=== PATIENT | female | born 1980 ===

== ENCOUNTER 2017-10-12 15:19 | Emergency (ER) | payer OTHER, SELFPAY ==
[2017-10-12 15:19] VITALS: BMI 23.1
--- NOTE | 2017-10-12 15:52 | ED PDOC ---
Upper Extremity Pain/Injury Time Seen by Provider: 10/12/17 15:34 Chief Complaint (Nursing): Upper Extremity Problem/Injury Chief Complaint (Provider): Left shoulder pain History Per: Patient History/Exam Limitations: no limitations Onset/Duration Of Symptoms: Days (6) Current Symptoms Are (Timing): Still Present Additional Complaint(s): 37 year old female presents to the emergency department with a complaint of a left shoulder pain x6 days. Associated with numbness to her L fingers. 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 Denies fever, decrease in range of motion, trauma, or any other joint point. Past Medical History Reviewed: Historical Data, Nursing Documentation, Vital Signs Vital Signs: Last Vital Signs Temp 98.2 F 10/12/17 15:23 Pulse 71 10/12/17 15:23 Resp 16 10/12/17 15:23 BP 118/78 10/12/17 15:23 Pulse Ox 98 10/12/17 15:23 - Medical History PMH: No Chronic Diseases - Surgical History Surgical History: Appendectomy - Family History Family History: States: Unknown Family Hx - Social History Current smoker - smoking cessation education provided: No Alcohol: None Drugs: Denies - Home Medications Home Medications: Ambulatory Orders Medication Instructions Recorded Naproxen [Naprosyn] 500 mg PO BID PRN #15 tablet 02/03/16 traMADol [Ultram] 50 mg PO Q8H PRN #10 tab 02/03/16 Meloxicam [Mobic] 15 mg PO DAILY PRN #30 tab 10/12/17 - Allergies Allergies/Adverse Reactions: Allergies Allergy/AdvReac Type Severity Reaction Status Date / Time No Known Allergies Allergy Verified 10/12/17 15:22 Review of Systems ROS Statement: Except As Marked, All Systems Reviewed And Found Negative (As per HPI, otherwise negative) Constitutional: Negative for: Fever, Other (Trauma, decrease in range of motion , or any other joint pain. ) Musculoskeletal: Positive for: Shoulder Pain (Left) Neurological: Positive for: Numbness Physical Exam - Reviewed Nursing Documentation Reviewed: Yes Vital Signs Reviewed: Yes - Physical Exam Comments: GENERAL APPEARANCE: Patient is awake, alert, oriented x 3, in no acute distress. SKIN: Warm, dry; (-) cyanosis. LEFT UPPER EXTREMITY: (+) Mild point tenderness to the posterior aspect of the L shoulder, (+) FROM, (-) swelling, (-) ecchymosis, (-) deformity, (-) distal neurovascular deficit. Elbow, hand and digits: (-) tenderness. NEURO AND PSYCH: Mental status as above. - ECG O2 Sat by Pulse Oximetry: 98 (RA) Pulse Ox Interpretation: Normal Medical Decision Making Medical Decision Making: Time: 1537 Initial impression: Left shoulder pain Initial plan: --Left shoulder x-ray --Reevaluation XR left shoulder: no fracture, no dislocation, as read by GISELLA Patient advised that official radiology read of XR is still pending and will call the patient if there is any discrepancy within 24 hours. X-ray results were discussed with the patient in great detail. Advised to rest, ice and use sling as advised. Shoulder sling applied. Diagnosis likely muscle strain/joint sprain discussed with the patient. Advised to follow up with the clinic in 1-2 days without fail. Advised to take medication as prescribed. Return to the emergency room at any time for any new or worsening symptoms. Patient states she fully agrees with and understands discharge instructions. States that she agrees with the plan and disposition. Verbalized and repeated discharge instructions and plan. I have given the patient opportunity to ask any additional questions. Scribe Attestation: Documented by Anahy Askew, acting as a scribe for Angeles Burrows PA-C. Provider Scribe Attestation: All medical record entries made by the Scribe were at my direction and personally dictated by me. I have reviewed the chart and agree that the record accurately reflects my personal performance of the history, physical exam, medical decision making, and the department course for this patient. I have also personally directed, reviewed, and agree with the discharge instructions and disposition. Disposition - Clinical Impression Clinical Impression: Left shoulder strain - Patient ED Disposition Is Patient to be Admitted: No Counseled Patient/Family Regarding: Studies Performed, Diagnosis, Need For Followup, Rx Given - Disposition Referrals: [facility] [Outside] Disposition: Routine/Home Disposition Time: 17:00 Condition: STABLE Additional Instructions: Thank you for letting us take care of you today. You were treated for L shoulder strain. The emergency medical care you received today was directed at your acute symptoms. Rest, ice and use sling for comfort. If you were prescribed any medication, please fill it and take as directed. It may take several days for your symptoms to resolve. Return to the Emergency Department if your symptoms worsen, do not improve, or if you have any other problems. Please call one of the physicians/clinics you have been referred to that are listed on the Patient Visit Information form that is included in your discharge packet. Bring any paperwork you were given at discharge with you along with any medications you are taking to your follow up visit. Our treatment cannot replace ongoing medical care by a primary care provider (PCP) outside of the emergency department. Thank you for allowing the [facility] team to be part of your care today. If you had an X-Ray : A Radiologist will review the ED reading if any change in treatment is needed we will contact you. 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
--- NOTE | 2017-10-12 17:13 | RAD ---
PROCEDURE: Radiographs of the Left Shoulder HISTORY: Pain. No history of recent/ related trauma provided Anatomic area of interest: Greater tuberosity region COMPARISON: No prior. FINDINGS: BONES: Normal. No fracture. JOINTS: Normal. Glenohumeral and acromioclavicular joints preserved. No osteoarthritis. SOFT TISSUES: Normal. OTHER FINDINGS: None. IMPRESSION: Normal radiographs of the left shoulder.
[2017-10-12 17:54] VITALS: BP 112/68; PULSE 81; RESP 18; TEMP 98.1; O2SAT 99
== END 2017-10-12 17:54 | disposition home or self-care (01) ==
LOC: H.ER 15:19
DX: S46.912A Strain of unspecified muscle, fascia and tendon at shoulder and upper arm level, left arm, initial encounter (principal); X50.9XXA Other and unspecified overexertion or strenuous movements or postures, initial encounter; Y92.89 Other specified places as the place of occurrence of the external cause

== ENCOUNTER 2018-02-01 13:15 | Emergency (ER) | payer OTHER, SELFPAY ==
[2018-02-01 13:16] VITALS: BMI 23.1
[2018-02-01 13:30] VITALS: BP 117/74; PULSE 76; RESP 16; TEMP 97.4; O2SAT 98
--- NOTE | 2018-02-01 15:37 | ED PDOC ---
Upper Extremity Pain/Injury Time Seen by Provider: 02/01/18 14:11 Chief Complaint (Nursing): Abnormal Skin Integrity Chief Complaint (Provider): left shoulder pain and rash History Per: Patient History/Exam Limitations: no limitations Onset/Duration Of Symptoms: Days (x2) Current Symptoms Are (Timing): Still Present Additional Complaint(s): Tanvi Mayo is a 37 year old female, with no significant past medical history, who presents to the emergency department complaining of left shoulder pain with recent diagnosis of left labral tear and undergoing physical therapy, last session x3 days ago. She reports increased pain since her last session and also reports noting some red rash to her left shoulder area over the past x2 days. Patient states red areas are fairly tender but denies any fever, chills or other medical complaints. PMD: None provided. Past Medical History Reviewed: Historical Data, Nursing Documentation, Vital Signs Vital Signs: Last Vital Signs Temp 97.4 F L 02/01/18 13:26 Pulse 76 02/01/18 13:26 Resp 16 02/01/18 13:26 BP 117/74 02/01/18 13:26 Pulse Ox 98 02/01/18 13:26 - Medical History Other PMH: left labral tear - Surgical History Surgical History: Appendectomy - Family History Family History: States: Unknown Family Hx - Home Medications Home Medications: Ambulatory Orders Medication Instructions Recorded Naproxen [Naprosyn] 500 mg PO BID PRN #15 tablet 02/03/16 traMADol [Ultram] 50 mg PO Q8H PRN #10 tab 02/03/16 Meloxicam [Mobic] 15 mg PO DAILY PRN #30 tab 10/12/17 Cephalexin [Keflex] 500 mg PO Q8 #21 capsule 02/01/18 Ibuprofen [Motrin Tab] 600 mg PO Q8 #15 tab 02/01/18 - Allergies Allergies/Adverse Reactions: Allergies Allergy/AdvReac Type Severity Reaction Status Date / Time No Known Allergies Allergy Verified 10/12/17 15:22 Review of Systems ROS Statement: Except As Marked, All Systems Reviewed And Found Negative Constitutional: Negative for: Fever, Chills Musculoskeletal: Positive for: Shoulder Pain (left) Skin: Positive for: Rash (red, left shoulder area) Physical Exam - Reviewed Nursing Documentation Reviewed: Yes Vital Signs Reviewed: Yes - Physical Exam Appears: Positive for: No Acute Distress Head Exam: Positive for: ATRAUMATIC, NORMOCEPHALIC Skin: Positive for: Normal Color, Warm, Dry, Rash (x3 separate areas of 2 to 3cm of erythema with mild tenderness, no induration or fluctuance, over the left shoulder and left chest wall area.) Eye Exam: Positive for: Normal appearance Neck: Positive for: Painless ROM Respiratory: Negative for: Respiratory Distress Extremity: Positive for: Normal ROM (full ROM of left shoulder but with pain), Tenderness (mild tenderness over the anterior left shoulder ). Negative for: Deformity, Swelling Neurologic/Psych: Positive for: Alert, Oriented - ECG O2 Sat by Pulse Oximetry: 98 (RA) Pulse Ox Interpretation: Normal Medical Decision Making Medical Decision Making: Time: 14:11 Initial Impression: Left shoulder pain and rash Initial Plan: --Motrin tab 600 mg PO --Shoulder left [RAD] --Reevaluation -Shoulder pain related to labral tear, advised to continue physical therapy. Rash is above but not urticarial in presentation, given tenderness will cover with antibiotics and advised to follow up with PMD in x2 days with prescription Scribe Attestation: Documented by Tonny Escobar, acting as a scribe for Sandra Feng PA-C Provider Scribe Attestation: All medical record entries made by the Scribe were at my direction and personally dictated by me. I have reviewed the chart and agree that the record accurately reflects my personal performance of the history, physical exam, medical decision making, and the department course for this patient. I have also personally directed, reviewed, and agree with the discharge instructions and disposition. Disposition - Clinical Impression Clinical Impression: Left shoulder strain, Cellulitis - Disposition Disposition Time: 16:30 Condition: IMPROVED Prescriptions: Cephalexin [Keflex] 500 mg PO Q8 #21 capsule Ibuprofen [Motrin Tab] 600 mg PO Q8 #15 tab Instructions: Muscle Strain, Cellulitis (Skin Infection), Adult (DC) Forms: [employer] (Icelandic), [employer] (Romanian)
--- NOTE | 2018-02-01 16:43 | RAD ---
Date of service: 02/01/2018 PROCEDURE: Radiographs of the Left Shoulder HISTORY: shoulder pain COMPARISON: No prior. FINDINGS: BONES: Normal. No fracture. JOINTS: Normal. Glenohumeral and acromioclavicular joints preserved. No osteoarthritis. SOFT TISSUES: Normal. OTHER FINDINGS: None. IMPRESSION: Normal radiographs of the left shoulder.
== END 2018-02-01 17:27 | disposition home or self-care (01) ==
LOC: H.ER 13:15
DX: M25.512 Pain in left shoulder (principal); R21 Rash and other nonspecific skin eruption

== ENCOUNTER 2018-04-19 20:25 | Emergency (ER) | payer SELFPAY ==
[2018-04-19 20:25] VITALS: BMI 23.1
[2018-04-19 20:32] VITALS: RESP 16; O2SAT 98
--- NOTE | 2018-04-19 21:03 | ED PDOC ---
HPI: General Adult Time Seen by Provider: 04/19/18 20:59 Chief Complaint (Nursing): Female Genitourinary Chief Complaint (Provider): abdominal pain/back pain History Per: Patient (37 y/o female here with lower abdominal pain x 2 days associated with dysuria now associated with right back pain. Denies any fevers/chills/vomiting. Notes diarrhea/nausea. Has h/o appendectomy.) Past Medical History Reviewed: Historical Data, Nursing Documentation, Vital Signs Vital Signs: Last Vital Signs Temp 98.6 F 04/19/18 20:28 Pulse 82 04/19/18 20:28 Resp 16 04/19/18 20:28 BP 141/69 04/19/18 20:28 Pulse Ox 98 04/19/18 20:28 - Surgical History Surgical History: Appendectomy - Family History Family History: States: Unknown Family Hx - Home Medications Home Medications: Ambulatory Orders Medication Instructions Recorded Naproxen [Naprosyn] 500 mg PO BID PRN #15 tablet 02/03/16 traMADol [Ultram] 50 mg PO Q8H PRN #10 tab 02/03/16 Meloxicam [Mobic] 15 mg PO DAILY PRN #30 tab 10/12/17 Cephalexin [Keflex] 500 mg PO Q8 #21 capsule 02/01/18 Ibuprofen [Motrin Tab] 600 mg PO Q8 #15 tab 02/01/18 Ciprofloxacin HCl [Cipro] 500 mg PO BID #14 tablet 04/19/18 Ibuprofen [Motrin] 600 mg PO Q8 PRN #21 tab 04/19/18 Ondansetron ODT [Zofran ODT] 4 mg PO Q8 PRN #10 odt 04/19/18 Phenazopyridine HCl [Pyridium] 200 mg PO Q12 PRN #5 tablet 04/19/18 oxyCODONE/Acetaminophen [Percocet 1 ea PO Q6 PRN #6 tab 04/19/18 5/325 mg Tab] - Allergies Allergies/Adverse Reactions: Allergies Allergy/AdvReac Type Severity Reaction Status Date / Time No Known Allergies Allergy Verified 04/19/18 20:28 Review of Systems ROS Statement: Except As Marked, All Systems Reviewed And Found Negative Gastrointestinal: Positive for: Nausea, Abdominal Pain Physical Exam - Reviewed Nursing Documentation Reviewed: Yes Vital Signs Reviewed: Yes - Physical Exam Appears: Positive for: Well, Non-toxic, No Acute Distress Head Exam: Positive for: ATRAUMATIC, NORMAL INSPECTION, NORMOCEPHALIC Skin: Positive for: Normal Color, Warm, DRY Eye Exam: Positive for: EOMI, Normal appearance, PERRL ENT: Positive for: Normal ENT Inspection Neck: Positive for: Normal, Painless ROM Cardiovascular/Chest: Positive for: Regular Rate, Rhythm Respiratory: Positive for: CNT, Normal Breath Sounds Gastrointestinal/Abdominal: Positive for: Normal Exam, Soft, Tenderness (suprapubic tenderness) Back: Positive for: R CVA Tenderness Extremity: Positive for: Normal ROM Neurologic/Psych: Positive for: Alert, Oriented - Laboratory Results Result Diagrams: 04/19/18 21:19 04/19/18 21:19 - ECG O2 Sat by Pulse Oximetry: 98 - Progress ED Course And Treament: ns 1 liter wide open toradol 15mg iv x 1 dose rocephin 1 gm iv x 1 dose Disposition - Clinical Impression Clinical Impression: Pyelonephritis - Patient ED Disposition Is Patient to be Admitted: No - Disposition Disposition: Routine/Home Disposition Time: 23:37 Condition: FAIR Prescriptions: Ciprofloxacin HCl [Cipro] 500 mg PO BID #14 tablet Ibuprofen [Motrin] 600 mg PO Q8 PRN #21 tab PRN Reason: Pain, Moderate (4-7) Ondansetron ODT [Zofran ODT] 4 mg PO Q8 PRN #10 odt PRN Reason: Nausea/Vomiting oxyCODONE/Acetaminophen [Percocet 5/325 mg Tab] 1 ea PO Q6 PRN #6 tab PRN Reason: Pain, Severe (8-10) Phenazopyridine HCl [Pyridium] 200 mg PO Q12 PRN #5 tablet PRN Reason: Urinary Discomt Instructions: Kidney Infection (DC) Forms: [facility] ED School/Work Excuse Print Language: ISRAELI
[2018-04-19 21:25] LABS: BASO # 0.1 K/uL (0.0-0.2); BASO % 0.8 % (0.0-2.0); EOS # 0.1 K/uL (0.0-0.7); EOS % 0.6 % (0.0-4.0); HEMOGLOBIN 12.3 g/dL (12.0-16.0); LYMPH # 2.9 K/uL (1.0-4.3); LYMPH % 17.8 % (20.0-40.0); MEAN CELL VOLUME 92.3 fl (81.0-99.0); MEAN CORPUSCULAR HEMOGLOBIN 30.6 pg (27.0-31.0); MEAN CORPUSCULAR HGB CONC 33.1 g/dL (33.0-37.0); MEAN PLATELET VOLUME 7.5 fl (7.2-11.7); MONO % 5.9 % (0.0-10.0); NEUT # 12.1 K/uL (1.8-7.0); NEUT % 74.9 % (50.0-75.0); RBC 4.02 Mil/uL (3.80-5.20); RED CELL DISTRIBUTION WIDTH 12.8 % (11.5-14.5); WHITE BLOOD COUNT 16.2 K/uL (4.8-10.8)
[2018-04-19] MEDS: cefTRIAXone (Rocephin) 1 gm Inj IVPB ONE (21:28)
[2018-04-19] MEDS: Sodium Chloride 0.9% 1,000 ML IV STA (21:29)
[2018-04-19 21:51] LABS: SQUAMOUS EPITHIAL 6 /hpf (0-5); URINE BACTERIA MOD (<OCC); URINE BILIRUBIN NEGATIVE (NEGATIVE); URINE BLOOD SMALL (NEGATIVE); URINE CLARITY CLOUDY (Clear); URINE COLOR YELLOW (YELLOW); URINE GLUCOSE (UA) NEG (NEGATIVE); URINE LEUKOCYTE ESTERASE MOD Leu/uL (Negative); URINE PROTEIN 100 mg/dL (NEGATIVE); URINE UROBILINOGEN 0.2-1.0 mg/dL (0.2-1.0); WBC CLUMPS MOD /hpf
[2018-04-19 22:00] LABS: ALB/GLOB RATIO 1.2 (1.0-2.1); ALBUMIN 3.9 g/dL (3.5-5.0); ALT/SGPT 30 U/L (9-52); AST/SGOT 22 U/L (14-36); BLOOD UREA NITROGEN 14 mg/dl (7-17); CALCIUM 8.9 mg/dL (8.4-10.2); GFR NON-AFRICAN AMERICAN > 60; LIPASE 85 U/L (23-300)
[2018-04-19 23:43] VITALS: BP 102/58; PULSE 72; TEMP 98.2
== END 2018-04-20 00:23 | disposition home or self-care (01) ==
LOC: H.ER 20:25
DX: N12 Tubulo-interstitial nephritis, not specified as acute or chronic (principal)
CPT/HCPCS: 80053; 81003; 81025; 83690; 85025; 87040; 87086; 96365; 99283; J0696; J7030

== ENCOUNTER 2018-10-03 23:33 | Emergency (ER) | payer SELFPAY ==
[2018-10-03 23:33] VITALS: BMI 23.1
[2018-10-03 23:47] VITALS: RESP 16; O2SAT 98
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
[2018-10-04 01:37] LABS: BASO # 0.1 K/uL (0.0-0.2); BASO % 0.7 % (0.0-2.0); EOS % 0.2 % (0.0-4.0); HEMOGLOBIN 12.6 g/dL (12.0-16.0); LYMPH # 3.1 K/uL (1.0-4.3); LYMPH % 20.5 % (20.0-40.0); MEAN CELL VOLUME 93.6 fl (81.0-99.0); MEAN CORPUSCULAR HEMOGLOBIN 31.3 pg (27.0-31.0); MEAN CORPUSCULAR HGB CONC 33.5 g/dL (33.0-37.0); MEAN PLATELET VOLUME 7.5 fl (7.2-11.7); MONO # 1.2 K/uL (0.0-0.8); MONO % 7.9 % (0.0-10.0); NEUT # 10.7 K/uL (1.8-7.0); NEUT % 70.7 % (50.0-75.0); RBC 4.03 Mil/uL (3.80-5.20); RED CELL DISTRIBUTION WIDTH 12.9 % (11.5-14.5); WHITE BLOOD COUNT 15.2 K/uL (4.8-10.8)
[2018-10-04 01:47] LABS: ALB/GLOB RATIO 1.3 (1.0-2.1); ALBUMIN 4.3 g/dL (3.5-5.0); ALT/SGPT 32 U/L (9-52); AST/SGOT 27 U/L (14-36); BLOOD UREA NITROGEN 21 mg/dl (7-17); CALCIUM 8.9 mg/dL (8.4-10.2); GFR NON-AFRICAN AMERICAN > 60; SQUAMOUS EPITHIAL < 1 /hpf (0-5); URINE BACTERIA RARE (<OCC); URINE BILIRUBIN NEGATIVE (NEGATIVE); URINE BLOOD SMALL (NEGATIVE); URINE CLARITY SLIGHTY-CLOUDY (Clear); URINE COLOR YELLOW (YELLOW); URINE GLUCOSE (UA) NEG (NEGATIVE); URINE LEUKOCYTE ESTERASE SMALL Leu/uL (Negative); URINE PROTEIN NEGATIVE (NEGATIVE); URINE UROBILINOGEN 0.2-1.0 mg/dL (0.2-1.0)
[2018-10-04] MEDS ORDERED: Iohexol 300 100 ML IJ ONE (04:20)
[2018-10-04] MEDS ORDERED: Sodium Chloride 0.9% 50 ML IV ONE (04:21)
[2018-10-04] MEDS ORDERED: cefTRIAXone (Rocephin) 250 mg Inj IM ONE (05:08)
[2018-10-04] MEDS ORDERED: cefTRIAXone (Rocephin) 250 mg Inj ONE (05:31)
[2018-10-04] MEDS ORDERED: Sterile Water 10 ML IV ONE (05:33)
[2018-10-04 06:03] VITALS: BP 121/68; PULSE 64; TEMP 98
--- NOTE | 2018-10-04 11:08 | US ---
Date of service: 10/04/2018 HISTORY: suprapubic, LLQ pain COMPARISON: None available. TECHNIQUE: Trans vaginal FINDINGS: UTERUS: Measures 9.1 x 3.8 x 4.9 cm. Normal anteverted appearance. No fibroid or other mass lesion seen. ENDOMETRIUM: Measures 9 mm in diameter. Unremarkable. CERVIX: No cervical abnormality identified. RIGHT OVARY: Measures 2.9 x 2.5 x 1.6 cm. No solid mass. Normal flow. LEFT OVARY: Measures 2.2 x 2.7 x 2.5 cm. No solid mass. Normal flow. FREE FLUID: No significant free fluid noted. OTHER FINDINGS: None. IMPRESSION: Unremarkable pelvic ultrasound. Concordant results (preliminary interpretation) provided by [employer].
--- NOTE | 2018-10-04 13:19 | CT ---
Date of service: 10/04/2018 PROCEDURE: CT Abdomen and Pelvis with contrast HISTORY: suprapubic, LLQ pain COMPARISON: Well TECHNIQUE: Intravenous contrast dose: Radiation dose: Total exam DLP = <inf_radiation_dlp> mGy-cm. This CT exam was performed using one or more of the following dose reduction techniques: Automated exposure control, adjustment of the mA and/or kV according to patient size, and/or use of iterative reconstruction technique. FINDINGS: LOWER THORAX: Unremarkable. LIVER: Unremarkable. No gross lesion or ductal dilatation. GALLBLADDER AND BILE DUCTS: Unremarkable. PANCREAS: Unremarkable. No gross lesion or ductal dilatation. SPLEEN: Unremarkable. ADRENALS: Unremarkable. No mass. KIDNEYS AND URETERS: Unremarkable. No hydronephrosis. No solid mass. VASCULATURE: Unremarkable. No aortic aneurysm. No atherosclerotic calcification or mural plaque present. BOWEL: Constipation without fecal impaction or obstruction. APPENDIX: No abnormalities to suggest acute appendicitis. No right lower quadrant inflammatory processes identified. PERITONEUM: Unremarkable. No free fluid. No free air. LYMPH NODES: Unremarkable. No enlarged lymph nodes. BLADDER: Unremarkable. REPRODUCTIVE: Unremarkable. Incidental finding(s): Small adnexal cysts/follicles. BONES: No acute fracture. OTHER FINDINGS: None. IMPRESSION: No significant or acute findings to account for/ related to the clinical presentation. Additional benign and/or incidental findings described above. Concordant results (preliminary interpretation) provided by [employer]. Procedure Completed: 04:30. Preliminary Report: Interpreted and electronically signed: 05:07. Final Interpretation: 13:15.
== END 2018-10-04 06:02 | disposition home or self-care (01) ==
LOC: H.ER 23:33
DX: N39.0 Urinary tract infection, site not specified (principal); B37.3 Candidiasis of vulva and vagina; N73.9 Female pelvic inflammatory disease, unspecified; T76.21XA Adult sexual abuse, suspected, initial encounter
CPT/HCPCS: 74177; 76856; 80053; 81003; 81025; 85025; 87070; 87086; 87181; 87390; 87491; 87591; 96372; 99285; J0696; J1885; Q9967